=== PATIENT | male | born 1985 | race Caucasian/White ===

== ENCOUNTER 2017-11-27 07:57 | Day surgery (SDC) | payer OTHER ==
[~2017-11-27 07:57] MED LIST: CEFAZOLIN 2 GM/50 ML (PMX) 50 ML IVPB; SOD CHLORIDE 0.9% 1,000 ML IV
[2017-11-27] MEDS ORDERED: BUPIVACAINE 0.25% (STERILE-PAK) 30 ML INJ (10:24)
[2017-11-27] MEDS ORDERED: HYDROmorphONE (0.2 MG/ML) 10ML SYG IV ×2 (10:30)
[2017-11-27] MEDS ORDERED: DIPHENHYDRAMINE 50 MG INJ IV (10:30)
[2017-11-27] MEDS ORDERED: MEPERIDINE 25 MG INJ IV (10:30)
[2017-11-27] MEDS ORDERED: FENTAnyl 50 MCG/ML VIAL IV ×3 (10:30)
[2017-11-27] MEDS ORDERED: OXYCODONE/ACETAMINOPHEN (5/325) TAB PO ×2 (10:30)
[2017-11-27] MEDS ORDERED: EPHEDrine SULFATE 50 MG/5 ML SYG IV (10:30)
[2017-11-27] MEDS ORDERED: MIDAZOLAM 1 MG/ML 2 ML INJ IV (10:30)
[2017-11-27] MEDS ORDERED: METOCLOPRAMIDE 10 MG INJ IV (10:30)
[2017-11-27] MEDS ORDERED: ONDANSETRON 4 MG INJ IV (10:30)
[2017-11-27] MEDS ORDERED: hydrALAzine 20 MG INJ IV (10:30)
[2017-11-27] MEDS ORDERED: LABETALOL HCL 20MG INJ IV (10:30)
[2017-11-27] MEDS ORDERED: ROCURONIUM 50 MG INJ (10:41)
[2017-11-27] MEDS ORDERED: LIDOCAINE 2% (SDV) 5 ML INJ (10:41)
[2017-11-27] MEDS ORDERED: PROPOFOL 20 ML (10:41)
[2017-11-27] MEDS ORDERED: MEPERIDINE 100 MG INJ (10:41)
[2017-11-27] MEDS ORDERED: NEOSTIGMINE 3 MG/3 ML SYRINGE ×2 (10:41→11:00)
[2017-11-27] MEDS ORDERED: SUCCINYLCHOLINE CHLORIDE 100 MG/5 ML SYG IV (10:41)
[2017-11-27] MEDS ORDERED: GLYCOPYRROLATE 0.4 MG INJ ×2 (10:41→11:00)
[2017-11-27] MEDS ORDERED: ONDANSETRON 4 MG INJ (10:59)
[2017-11-27] MEDS: BUPIVACAINE 0.25% (STERILE-PAK) 30 ML INJ INJ (11:00)
[2017-11-27] MEDS: POLYMYXIN/BACITRACIN 1L IRRIG IRR (11:01)
[2017-11-27] MEDS ORDERED: CEFAZOLIN 1 GM INJ (11:13)
[2017-11-27] MEDS ORDERED: HYDROCODONE/APAP (5/325) TAB PO (11:30)
[2017-11-27] MEDS: HYDROmorphONE (0.2 MG/ML) 10ML SYG IV (12:15)
== END 2017-11-27 14:00 | disposition home or self-care (01) ==
LOC: SDS 07:57
DX: K40.90 Unilateral inguinal hernia, without obstruction or gangrene, not specified as recurrent (principal)
CPT/HCPCS: 49505; 88304

== ENCOUNTER 2018-01-21 06:54 | Day surgery (SDC) | payer OTHER ==
[2018-01-21] MEDS: POLYMYXIN/BACITRACIN 1L IRRIG IRR
[2018-01-21] MEDS: BUPIVACAINE 0.25% (MPF) 30 ML INJ
[2018-01-21] MEDS ORDERED: CEFAZOLIN 1 GM INJ (07:00)
[2018-01-21] MEDS ORDERED: METOCLOPRAMIDE 10 MG INJ (07:00)
[2018-01-21] MEDS ORDERED: ONDANSETRON 4 MG INJ (07:00)
[2018-01-21] MEDS ORDERED: SOD CHLORIDE 0.9% 1,000 ML IV (08:00)
[2018-01-21] MEDS ORDERED: CEFAZOLIN 2 GM/50 ML (PMX) 50 ML IVPB (08:00)
[2018-01-21] MEDS ORDERED: POLYMYXIN/BACITRACIN 1L IRRIG (08:34)
[2018-01-21] MEDS ORDERED: FENTAnyl 50 MCG/ML VIAL (09:19)
[2018-01-21] MEDS ORDERED: MIDAZOLAM 1 MG/ML 2 ML INJ (09:20)
[2018-01-21] MEDS ORDERED: DEXAMETHASONE 4 MG/ML 1 ML INJ (09:21)
[2018-01-21] MEDS ORDERED: SUCCINYLCHOLINE CHLORIDE 100 MG/5 ML SYG IV (09:50)
[2018-01-21] MEDS ORDERED: PROPOFOL 20 ML (09:50)
[2018-01-21] MEDS ORDERED: LIDOCAINE 2% (SDV) 5 ML INJ (09:50)
[2018-01-21] MEDS ORDERED: HYDROmorphONE (0.2 MG/ML) 10ML SYG IV ×2 (10:00)
[2018-01-21] MEDS ORDERED: DIPHENHYDRAMINE 50 MG INJ IV (10:00)
[2018-01-21] MEDS ORDERED: MEPERIDINE 25 MG INJ IV (10:00)
[2018-01-21] MEDS ORDERED: KETOROLAC 30 MG INJ IV (10:00)
[2018-01-21] MEDS ORDERED: ONDANSETRON 4 MG INJ IV (10:00)
[2018-01-21] MEDS ORDERED: HYDROCODONE/APAP (5/325) TAB PO (10:00)
[2018-01-21] MEDS ORDERED: FENTAnyl 50 MCG/ML VIAL IV ×2 (10:00)
== END 2018-01-21 11:19 | disposition home or self-care (01) ==
LOC: SDS 06:54
DX: K40.30 Unilateral inguinal hernia, with obstruction, without gangrene, not specified as recurrent (principal)
CPT/HCPCS: 49507; 88302